=== PATIENT | male | born 1980 | race Hispanic/Latino ===

== ENCOUNTER → 2018-07-31 | Day surgery (SDC) | payer OTHER ==
[~2018-07-31] MED LIST: CEFAZOLIN SOD 1 GM/NS 50ML 50 ML IV ONE; DEXAMETHASONE SOD PHOS INJ 4 MG/ML VIAL ONE; EPINEPHRINE HCL 1:1000 1ML 1 MG/ML AMP ONE; FENTANYL CITRATE/PF 100MCG/2 ML INJ ONE; HYDROCODONE/APAP 7.5MG-325MG 1 EA TAB ONE; HYDROMORPHONE 2MG/ML 2 MG/ML ML ONE; IBUPROFEN400 MG PO; LIDOCAINE HCL 2% LOCAL INJ 5 ML SDV VIAL INJ ONE; MEPERIDINE HCL INJ 25 MG/ML VIAL ONE; METOCLOPRAMIDE HCL 10 MG/2ML VIAL ONE; MIDAZOLAM HCL 2 MG/2 ML VIAL ONE; MORPHINE SULFATE INJ 10 MG/ML ONE; ONDANSETRON HCL INJ 2MG/ML 2ML 2 MG/ML VIAL ONE; PROMETHAZINE HCL (IM) 25 MG/ML VIAL ONE; PROPOFOL IV EMULSION 10 MG/ML 20 ML VIAL ONE; ROCURONIUM BROMIDE 10 MG/ML 5ML VIAL ONE; SEVOFLURANE INHAL SOLN 250 ML PEN BTL ONE; ULTRAM50 MG PO
--- OUTSIDE RECORDS SUMMARY | 2018-07-31 07:13 | XMS REPORT | Clinical Summary ---
Author Author [facility] Organization [facility] Address Unknown Phone Unavailable Care Team Providers Care Electronics Utility Worker Name Role Phone Jaron Abdi MD PCP Allergies No Known Allergies Medications End Date Status Medication Sig Dispensed Refills Start Date Active cephalexin (KEFLEX) 500 0 MG capsule 8 Active diazePAM (VALIUM) 5 MG 0 tablet 8 04/02/2018 cephalexin (KEFLEX) 500 Take 1 1 capsule 0 MG capsuleIndications: capsule (500 8 Vasectomy evaluation mg total) by mouth once for 1 dose. 04/05/2018 oxyCODone-acetaminophen Take 1 tablet 10 tablet 0 (PERCOCET) 5-325 mg per by mouth 8 tabletIndications: every 8 Vasectomy evaluation (eight) hours as needed for moderate pain for up to 3 days. Max Daily Amount: 3 tablets 04/02/2018 diazePAM (VALIUM) 5 MG Take 1 tablet 1 tablet 0 tabletIndications: (5 mg total) 8 Vasectomy evaluation by mouth once for 1 dose. Active Problems Problem Noted Date Encounter for vasectomy 05/25/2018 Vasectomy evaluation 04/02/2018 Encounters Care Team Description Date Type Specialty Lidia Cruz MD Encounter for vasectomy (Primary Dx); Status post vasectomy 05/25/2018 Procedure visit Urology Lidia Cruz MD Vasectomy evaluation (Primary Dx) 04/02/2018 Office Visit Urology after 07/30/2017 Family History Medical History Relation Name Comments Hyperlipidemia Father Hyperlipidemia Mother Hypertension Mother Relation Name Status Comments Father Alive Mother Alive Social History Date Tobacco Use Types Packs/Day Years Used Never Smoker Smokeless Tobacco: Never Used Alcohol Use Drinks/Week oz/Week Comments Yes Alcohol Habits Answer Date Recorded How often do you have a drink containing alcohol? 2-4 times a month 04/02/2018 How many drinks containing alcohol do you have on Not asked a typical day when you are drinking? How often do you have six or more drinks on one Not asked occasion? Sex Assigned at Date Recorded Not on file Industry Job Start Date Occupation Not on file Not on file Not on file Travel End Travel History Travel Start No recent travel history available. Last Filed Vital Signs Time Taken Vital Sign Reading 05/25/2018 8:42 AM PRE PLANNING ADVISOR Blood Pressure 132/84 05/25/2018 8:42 AM PRE PLANNING ADVISOR Pulse 64 05/25/2018 8:42 AM PRE PLANNING ADVISOR Temperature 36.7 C (98 F) - Respiratory Rate - - Oxygen Saturation - - Inhaled Oxygen - Concentration 05/25/2018 8:42 AM PRE PLANNING ADVISOR Weight 101 kg (223 lb) 05/25/2018 8:42 AM PRE PLANNING ADVISOR Height 167.6 cm (5' 6") 05/25/2018 8:42 AM PRE PLANNING ADVISOR Body Mass Index 35.99 Plan of Treatment Health Maintenance Due Date Last Done Comments INFLUENZA VACCINE 11/29/2017 Procedures Comments Procedure Name Priority Date/Time Associated Diagnosis VASECTOMY Routine 05/25/2018 Encounter for vasectomy 9:00 AM PRE PLANNING ADVISOR after 07/30/2017 Results * VASECTOMY (05/25/2018 9:00 AM PRE PLANNING ADVISOR) Narrative Performed At Lidia Cruz MD 05/25/2018 11:22 AM Vasectomy Date/Time: 05/25/2018 11:15 AM Performed by: Lidia Cruz MD Authorized by: Lidia Cruz MD Consent: Verbal consent obtained. Written consent obtained. Risks and benefits: risks, benefits and alternatives were discussed Consent given by: patient Patient understanding: patient states understanding of the procedure being performed Patient consent: the patient's understanding of the procedure matches consent given Procedure consent: procedure consent matches procedure scheduled Relevant documents: relevant documents present and verified Test results: test results available and properly labeled Required items: required blood products, implants, devices, and special equipment available Patient identity confirmed: verbally with patient and provided demographic data Time out: Immediately prior to procedure a "time out" was called to verify the correct patient, procedure, equipment, system support technician and site/side marked as required. Preparation: Patient was prepped and draped in the usual sterile fashion. Local anesthesia used: yes Anesthesia: Local anesthesia used: yes Local Anesthetic: lidocaine 1% without epinephrine Sedation: Patient sedated: yes Sedatives: diazepam Patient tolerance: Patient tolerated the procedure well with no immediate complications Comments: Informed consent obtained. Patient placed in supine position. Genitals prepped and draped in sterile fashion. Lidocaine 1% injected into bilateral spermatic cord for cord block. Right vas deferens palpated and pulled up to the skin level. Lidocaine 1% injected into the subcutaneous tissue. A 1 cm incision was made with a 15 blade. Vas Deferens was clamped and pulled up with a vas clamp. Perivasal tissue dissected free from the vas deferens. A 1 cm portion of the vas was excised. Both ends were coagulated with the bovie and clipped with a steel clip. The two ends were delivered back into the scrotum in separate planes.This same procedure was repeated for the left vas deferens. Hemostasis was maintained throughout the procedure with a Bovie. The skin incision was closed with a 3-0 chromic with a subparticular horizontal mattress and dermabond. Patient tolerated procedure well. after 07/30/2017 Insurance Payer Benefit Subscriber ID Type Phone Address Plan / Group [facility] xxxxxxxxx HMO/PPO THCARE CHOICE/CHO ICE + Advance Directives Patient has advance care planning documents on file. For more information, saul sterling contact: Jeet Abreu [address] [place] [address]
[2018-07-31 13:00] VITALS: BP 134/84
--- NOTE | 2018-08-01 11:21 | Operative Report ---
DATE OF PROCEDURE: 07/31/2018 SURGEON: Je Goodwin MD BIKE TECHNICIAN: Edi Colindres, certified PA. PREOPERATIVE DIAGNOSES: Right shoulder rotator cuff tear and posterior labral tear. POSTOPERATIVE DIAGNOSES: Right shoulder rotator cuff tear and posterior labral tear. PROCEDURES: Right shoulder arthroscopy, debridement of type 1 labral tear, subacromial decompression and rotator cuff repair. INDICATIONS: The patient is a 37-year-old gentleman, who has clinic signs and symptoms consistent with a traumatic tear of his supraspinatus. He also has evidence of a posterior labral tear. The findings and options have been discussed with the patient. He would like to proceed with definitive intervention. The risks and benefits of surgery were discussed. The lengthy recovery was explained. He states he understands and wishes to proceed. PROCEDURE IN DETAIL: The patient was brought to the operating room and placed under general anesthetic. He received prophylactic antibiotics and a regional block in the holding area. He was positioned in the beach chair position on the shoulder table. His right upper extremity was prepped and draped in a sterile manner. A preoperative time-out was performed. He was noted to have full range of motion and normal stability on exam. A standard posterior arthroscopy portal was established. The shoulder was insufflated with sterile saline and systematically inspected. The glenohumeral surfaces, anterior labrum, superior labrum, biceps, and biceps tendon were all intact and normal. A full-thickness tear of the supraspinatus was noted. This measured about 1.5 to 2 cm. A lateral working portal was established and a probe was easily introduced into the shoulder joint. There was a type 1 tear of the posterior labrum. This was carefully debrided with a mechanical shaver. This was introduced into the shoulder joint through the rotator cuff tear. The articular surface of the rotator cuff was also debrided back to more healthy tissue. The labrum was determined to be hooked stable. The scope was then placed into the subacromial space. A subacromial bursectomy and bone decompression were performed with an Electroblade. The lateral gutters were opened up. The bursal surface of the rotator cuff was debrided back to healthy tissue. The greater tuberosity was gently decorticated. An Arthrex SpeedBridge double row construct was used to repair the rotator cuff down to bleeding cancellous bone. Financial Management Analyst holes were placed at the articular margin. A bioabsorbable suture anchors preloaded with FiberTape were seated. Excellent bone quality was encountered. The sutures were passed using an Arthrex Scorpion suture passer through the rotator cuff. An anterior shuttle portal had to be established. The tendon was then repaired down to bleeding cancellous bone using a superior lateral secondary suture anchors. The FiberTape stitches were anchored in an anterior to posterior and posterior to anterior construct. Excellent fixation was obtained. The arthroscopic instruments were removed. The portal incisions were closed with nylon stitches. Sterile bandage and an UltraSling were applied. The patient was transported to the recovery room in stable condition. There was no blood loss and all needle and sponge counts were correct. Je Goodwin MD DR/JASON /[id number]
== END | disposition home or self-care (01) ==
LOC: OR 07:11
PROVIDERS: ATTEND Specialist
DX: S46.021A Laceration of muscle(s) and tendon(s) of the rotator cuff of right shoulder, initial encounter (principal); S43.431A Superior glenoid labrum lesion of right shoulder, initial encounter; X58.XXXA Exposure to other specified factors, initial encounter; Y93.89 Activity, other specified; Y92.009 Unspecified place in unspecified non-institutional (private) residence as the place of occurrence of the external cause; Z68.36 Body mass index [BMI] 36.0-36.9, adult; Z87.01 Personal history of pneumonia (recurrent)
CPT/HCPCS: 29827; C1713 ×2; J0171; J0690; J1100; J1170; J2001; J2175; J2250; J2270; J2405; J2550; J2704; J2765